=== PATIENT | female | born 1980 | race Caucasian/White ===

== ENCOUNTER 2020-11-11 16:42 | Outpatient (REF) | payer OTHER, SELFPAY | END 2020-11-11 16:43 | disposition home or self-care (01) | LOC: HO.LAB 16:42 | PROVIDERS: PCP Family Medicine; Visit Provider Internal Medicine | DX: Z20.828 Contact with and (suspected) exposure to other viral communicable diseases (principal) | CPT/HCPCS: C9803; U0003 ==

== ENCOUNTER 2021-03-05 08:11 | Outpatient (REF) | payer OTHER, SELFPAY ==
--- NOTE | ~2021-03-05 | XR_ITS ---
EXAMINATION: XR KNEE, RIGHT CLINICAL INFORMATION: Knee pain COMPARISON: None TECHNIQUE: Bilateral frontal, right lateral patella sunrise view of the right knee. FINDINGS: Bones and soft tissues are normal. No fracture, there is a small knee joint effusion. Alignment is anatomic. Joint spaces are well maintained. No abnormal soft tissue calcification. XR/XR knee RT 3V IMPRESSION: There is a small knee joint effusion. No fracture.
== END 2021-03-05 08:12 | disposition home or self-care (01) ==
LOC: HO.HOSX 08:11
PROVIDERS: Visit Provider Physician Assistant
DX: M17.11 Unilateral primary osteoarthritis, right knee (principal)
CPT/HCPCS: 20605; 20610; 73562; 99202; J1040

== ENCOUNTER 2021-09-02 09:10 | Outpatient (REF) | payer OTHER, SELFPAY ==
[2021-09-02 11:31] LABS: Appearance Urine CLEAR; Color Urine YELLOW; Glucose Urine UA NEG (NEG); Leukocyte Esterase Urine NEG (NEG); Nitrite Urine NEG (NEG); PH 5.5 (5.0-8.0); Specific Gravity - Urine 1.025 (1.005-1.025); Urine Blood NEG (NEG); Urine Ketones NEG (NEG); Urine Protein NEG (NEG-TRACE)
[2021-09-02 12:06] LABS: Alanine Aminotransferase 16 U/L (0-31); Albumin Level 4.4 g/dL (3.5-5.0); Alkaline Phosphatase 55 U/L (39-117); Anion Gap 13 (12-20); Aspartate Amino Transferase 21 U/L (5-31); Bilirubin Total 1.2 mg/dL (0.0-1.0); Blood Urea Nitrogen 14 mg/dL (9-16); Calcium 9.5 mg/dL (8.4-10.2); Carbon Dioxide 25 mmol/L (22-29); Chloride 107 mmol/L (96-108); Cholesterol 162 mg/dL; Estimated Glomerular Filt Rate > 60; Glucose Fasting 87 mg/dL (60-99); HDL Cholesterol 68 mg/dL; LDL Cholesterol Calculated 85 mg/dl; Potassium 4.5 mmol/L (3.3-5.1); Sodium 140 mmol/L (135-145); Total Protein 6.5 g/dL (6.5-8.0); Triglycerides 46 mg/dL
[2021-09-02 12:09] LABS: TSH reflex Free T4 1.52 uIU/mL (0.32-4.0)
[2021-09-05 11:32] LABS: TS Negative Control Passed; TS Panel A 0; TS Panel B 0; TS Positive Control Passed; TSpotTB Negative (SeeBelow)
== END 2021-09-02 09:11 | disposition home or self-care (01) ==
LOC: HO.WFDLDS 09:10
PROVIDERS: Visit Provider Family Medicine
DX: Z00.00 Encounter for general adult medical examination without abnormal findings (principal); Z11.1 Encounter for screening for respiratory tuberculosis
CPT/HCPCS: 36415; 80053; 80061; 81003; 84443; 86481

== ENCOUNTER 2022-02-25 08:01 | Outpatient (REF) | payer OTHER, SELFPAY ==
--- NOTE | ~2022-02-25 | XR_ITS ---
EXAMINATION: XR [id number]-[id number]-4 VIEW XR KNEE-LEFT-2 VIEWS CLINICAL INFORMATION: Pain unspecified knee. COMPARISON: Radiographs of the right knee and frontal view of both knees done on 03/05/2021. TECHNIQUE: Frontal views of both knees and 2 views of the left knee were obtained. FINDINGS: Frontal view of both knees show symmetric alignment with mild decreased joint space at medial compartments (left greater than right), consistent with mild osteoarthrosis. The lateral and the patellofemoral views of the left knee shows mild osteoarthrosis of the patellofemoral joint and no evidence of any joint effusion. No evidence of any fracture and/or dislocation. When compared to prior frontal views of both knees done on 03/05/2021, no significant interval changes present. XR/XR knee LT 2V IMPRESSION: 1. Mild osteoarthrosis of both medial compartments, similar to prior study dated 03/05/2021. 2. Mild patellofemoral osteoarthrosis of the left knee.
--- NOTE | ~2022-02-25 | XR_ITS ---
EXAMINATION: XR GFAJ-ODUHRNICE-2 VIEW XR KNEE-LEFT-2 VIEWS CLINICAL INFORMATION: Pain unspecified knee. COMPARISON: Radiographs of the right knee and frontal view of both knees done on 03/05/2021. TECHNIQUE: Frontal views of both knees and 2 views of the left knee were obtained. FINDINGS: Frontal view of both knees show symmetric alignment with mild decreased joint space at medial compartments (left greater than right), consistent with mild osteoarthrosis. The lateral and the patellofemoral views of the left knee shows mild osteoarthrosis of the patellofemoral joint and no evidence of any joint effusion. No evidence of any fracture and/or dislocation. When compared to prior frontal views of both knees done on 03/05/2021, no significant interval changes present. XR/XR knee standing BI IMPRESSION: 1. Mild osteoarthrosis of both medial compartments, similar to prior study dated 03/05/2021. 2. Mild patellofemoral osteoarthrosis of the left knee.
== END 2022-02-25 08:02 | disposition home or self-care (01) ==
LOC: HO.HOSX 08:01
PROVIDERS: Visit Provider Physician Assistant
DX: M17.12 Unilateral primary osteoarthritis, left knee (principal)
CPT/HCPCS: 20610; 73560; 73565; 99212; J1040

== ENCOUNTER 2022-06-17 08:41 | Outpatient (REF) | payer OTHER, SELFPAY ==
[2022-06-17 11:53] LABS: Alanine Aminotransferase 17 U/L (0-31); Albumin Level 4.5 g/dL (3.5-5.0); Alkaline Phosphatase 53 U/L (39-117); Anion Gap 12 (12-20); Aspartate Amino Transferase 28 U/L (5-31); Bilirubin Total 1.5 mg/dL (0.0-1.0); Blood Urea Nitrogen 15 mg/dL (9-16); Calcium 8.9 mg/dL (8.4-10.2); Carbon Dioxide 26 mmol/L (22-29); Chloride 105 mmol/L (96-108); Cholesterol 163 mg/dL; Estimated Glomerular Filt Rate > 60; Glucose Fasting 96 mg/dL (60-99); HDL Cholesterol 75 mg/dL; LDL Cholesterol Calculated 82 mg/dl; Sodium 139 mmol/L (135-145); Total Protein 6.6 g/dL (6.5-8.0); Triglycerides 32 mg/dL
[2022-06-17 12:09] LABS: TSH reflex Free T4 1.06 uIU/mL (0.32-4.0)
[2022-06-23 12:57] LABS: TS Panel A 0; TS Panel B 1; TSpotTB Negative (Negative)
[2022-06-27 14:22] LABS: TS Negative Control Passed; TS Positive Control Passed
== END 2022-06-17 08:42 | disposition home or self-care (01) ==
LOC: HO.WFDLDS 08:41
PROVIDERS: Visit Provider Family Medicine
DX: Z00.00 Encounter for general adult medical examination without abnormal findings (principal); Z11.1 Encounter for screening for respiratory tuberculosis
CPT/HCPCS: 36415; 80053; 80061; 84443; 86481

== ENCOUNTER → 2023-01-03 12:35 | Outpatient (BNVA) | payer OTHER, SELFPAY | PROVIDERS: PCP Family Medicine; Visit Provider Physician Assistant | DX: M17.12 Unilateral primary osteoarthritis, left knee (principal) | CPT/HCPCS: 20610; 99212; J1040 ==

== ENCOUNTER 2023-06-06 08:26 | Outpatient (REF) | payer OTHER, SELFPAY ==
[2023-06-06 11:34] LABS: MANUAL DIFF FLAG NO
[2023-06-06 11:46] LABS: Appearance Urine Clear; Color Urine Yellow; Glucose Urine UA Negative (Negative); Leukocyte Esterase Urine Moderate (2+) (Negative); Nitrite Urine Negative (Negative); Specific Gravity - Urine 1.015 (1.005-1.025); UMIC TRIGGER UA YES; Urine Blood Negative (Negative); Urine Ketones Negative (Negative); Urine Protein Negative (Neg-Trace)
[2023-06-06 11:48] LABS: Bacteria Urine 1+ (None Seen); Hyaline Casts Urine 0-2 /LPF (0-2); RBC Urine 0-2 /HPF (0-2)
[2023-06-06 11:55] LABS: Basophils Percent Auto 0.7 % (0-2); Eosinophils Absolute Auto 0.1 X10*3/uL (0.0-0.4); Hematocrit 43.1 % (37.0-47.0); Hemoglobin 14.1 g/dl (12.0-16.0); Imm Gran Abs Auto 0.01 X10*3/uL (0.00-0.03); Imm Gran Pct Auto 0.2 % (0.0-0.4); Lymphocytes Absolute Auto 1.6 X10*3/uL (1.2-4.9); Lymphocytes Percent Auto 29.2 % (20-40); Mean Corpuscular HGB Conc 32.7 g/dl (31.0-35.0); Mean Corpuscular Hemoglobin 29.1 pg (27.0-33.0); Mean Corpuscular Volume 88.9 fL (80.0-98.0); Mean Platelet Volume 10.7 fL (9.4-12.3); Monocytes Absolute Auto 0.3 X10*3/uL (0.1-1.2); Monocytes Percent Auto 5.9 % (2-11); Neutrophils Absolute Auto 3.5 x10*3/uL (2.0-8.3); Platelet Count 233 X10*3/uL (160-400); Red Blood Count 4.85 X10*6/uL (4.20-5.50); Red Cell Distribution Width 13.1 % (11.0-16.0); White Blood Count 5.6 X10*3/uL (4.8-10.8)
[2023-06-06 12:32] LABS: Alanine Aminotransferase 18 U/L (0-31); Albumin Level 4.2 g/dL (3.5-5.0); Alkaline Phosphatase 56 U/L (39-117); Anion Gap 10 (12-20); Aspartate Amino Transferase 22 U/L (5-31); Bilirubin Total 0.7 mg/dL (0.0-1.0); Blood Urea Nitrogen 15 mg/dL (9-16); Calcium 9.3 mg/dL (8.4-10.2); Carbon Dioxide 26 mmol/L (22-29); Chloride 107 mmol/L (96-108); Cholesterol 173 mg/dL; Estimated Glomerular Filt Rate > 60; Glucose Fasting 92 mg/dL (60-99); HDL Cholesterol 71 mg/dL; LDL Cholesterol Calculated 91 mg/dl; Potassium 4.4 mmol/L (3.3-5.1); Sodium 139 mmol/L (135-145); TSH reflex Free T4 1.46 uIU/mL (0.32-4.0); Total Protein 6.6 g/dL (6.5-8.0); Triglycerides 57 mg/dL
[2023-06-08 17:08] LABS: TS Negative Control Passed; TS Panel A 0; TS Panel B 0; TS Positive Control Passed; TSpotTB Negative (Negative)
== END 2023-06-06 08:27 | disposition home or self-care (01) ==
LOC: HO.WFDLDS 08:26
PROVIDERS: Visit Provider Family Medicine
DX: Z00.00 Encounter for general adult medical examination without abnormal findings (principal); Z11.1 Encounter for screening for respiratory tuberculosis
CPT/HCPCS: 36415; 80053; 80061; 81001; 84443; 85025; 86481

== ENCOUNTER 2023-06-19 08:56 | Outpatient (AMB) | payer OTHER, SELFPAY ==
[2023-06-19 09:12] VITALS: BP 120/72; PULSE 78; RESP 12; TEMP 36.6; O2SAT 98
--- NOTE | 2023-06-19 09:12 | MHC.AMWC2YR ---
Intake Pediatric Intake Visit Reasons: PE Allergies No Known Allergies Allergy (Verified 06/17/22 08:42) PFSH Medical History Herniated disc Social History Housing: House Patient Tobacco Use Status: Never used Tobacco e-Cigarette/Vaping Use: Never Used Second Hand Smoke Exposure: No service: No Current occupational status: unemployed and student Current occupation: right handed/ Current occupational exposures/hazards: No Cognitive needs: No Hearing needs: No Vision needs: No Coding Diagnoses
--- NOTE | 2023-06-19 09:12 | MHC.PC.OV ---
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 Accompanied by: Self / Same As Patient Allergies No Known Allergies Allergy (Verified 06/19/23 09:14) Medication List - Last Reconciled 06/19/23 by Willy David MD albuterol sulfate 90 mcg/actuation 2 puffs inhalation Q4H PRN albuterol sulfate 90 mcg/actuation (ProAir HFA) 2 puffs PO Q4-6H PRN buprenorphine-naloxone 2-0.5 mg (Suboxone) 1 film buccal DAILY Tobacco use date assessed: 06/19/23 Dental Screening Dental Screen Date: 06/19/23 Did you have a dental visit in the last 12 months?: Yes Did you have a dental problem in the last 6 months where you did not have access to dental care?: No Was dental information given to patient?: Patient has dentist HPI PE HPI Details 42 y/o female presents for an extended exam with f/u labs and health maintenance. Labs were drawn 06/06/23. Reviewed labs with pt. Triglycerides 57. TC 173. LDL 91. HDL 71. She continues to go to orthopedics for injection therapy. She reports she continues to walk every day for exercise. She states she needs to find an Ob-Customer Sales Consultant for a pap smear. [facility] Medical History Herniated disc Surgical History No pertinent past surgical history Social History Housing: House Patient Tobacco Use Status: Never used Tobacco e-Cigarette/Vaping Use: Never Used Second Hand Smoke Exposure: No service: No Current occupational status: student Current occupation: right handed/ Current occupational exposures/hazards: No Cognitive needs: No Hearing needs: No Vision needs: No Questionnaire PHQ-9 Over the last 2 weeks, how often have you been bothered by any of the following problems? 1. Little interest or pleasure in doing things: not at all 2. Feeling down, depressed, or hopeless: not at all 3. Trouble falling or staying asleep, or sleeping too much: not at all 4. Feeling tired or having little energy: not at all 5. Poor appetite or overeating: not at all 6. Feeling bad about yourself - or that you are a failure or have let yourself or your family down: not at all 7. Trouble concentrating on things, such as reading the newspaper or watching television: not at all 8. Moving or speaking so slowly that other people could have noticed. Or the opposite - being so fidgety or restless that you have been moving around a lot more than usual: not at all 9. Thoughts that you would be better off or of hurting yourself in some way: not at all Total score: 0 Source: Developed by Drs. Augustine Ramirez, Bertha Carmichael, Dayton Sweeney and colleagues, with an educational taylor from [employer]. Thrive Questionnaire Date Thrive assessed: 06/19/23 I am a: Patient What is your living situation today?: I have a steady place to live Within the past 12 months, did the food you bought not last and you didn't have the money to get more?: Never true Within the past 12 months, did you worry whether your food would run out before you got money to buy more?: Never true Do you have trouble paying for medicines?: No Do you have trouble getting transportation to medical appointments?: No Do you have trouble paying your heating and electricity bill?: No Do you have trouble taking care of your child, family member or friend?: No Do you have trouble with day-to-day activities such as bathing, preparing meals, shopping, managing finances, etc.?: No Are you currently unemployed and looking for a job?: No Are you interested in more education?: No Please select the resources that you would like help with: None Currently or been in a relationship where the following occur: no concerns reported AUDIT C Alcohol Use Questionnaire (AUDIT-C) 1. How often do you have a drink containing alcohol?: Never 3. How often do you have six or more drinks on one occasion?: Never Total Score: 0 YVETTE-7 AMB Questionnaire YVETTE-7 Date YVETTE - 7 assessed: 06/19/23 Feeling nervous, anxious, or on edge: 0 = Not at all Not being able to stop or control worryin = Not at all Worrying too much about different things: 0 = Not at all Trouble relaxin = Not at all Being so restless that it is hard to sit still: 0 = Not at all Becoming easily annoyed or irritable: 0 = Not at all Feeling afraid as if something awful might happen: 0 = Not at all Total YVETTE-7 score (0-4 normal; 5-9 mild; 10-14 moderate; 15-21 severe): 0 Source: Developed by Drs. Augustine Ramirez, Bertha Carmichael, Dayton Sweeney and colleagues, with an educational taylor from [employer]. ACT Questionnaire In the past 4 weeks, how much of the time did your asthma keep you from getting as much done at work, school or at home?: None of the time During the past 4 weeks, how often have you had shortness of breath?: Not at all During the past 4 weeks, how often did your asthma symptoms wake you up at night or earlier than usual in the morning?: Not at all During the past 4 weeks, how often have you had to use your rescue inhaler or nebulizer medication?: Once a week or less How would you rate your asthma control during the past 4 weeks?: Completely controlled Score: 24 Review of Systems Const Denies chills, Denies fatigue, Denies fever(s), Denies headache(s) and Denies weakness Eyes Denies change in vision ENT Denies dizziness, Denies headache(s), Denies hearing loss, Denies nasal congestion, Denies sinus pain, Denies sinus pressure and Denies sore throat Card Denies chest pain, Denies lightheadedness, Denies dyspnea and Denies other (palpitations) Resp Denies cough, Denies dyspnea and Denies wheezing GI Denies abdominal pain, Denies melena, Denies hematochezia, Denies change in bowel habits, Denies dyspepsia and Denies nausea Denies hematuria and Denies dysuria Musc Denies abnormal gait, Denies myalgias, Denies arthralgias, Denies numbness and Denies tingling Skin/Breast Denies rash, Denies unusual bruising and Denies wounds Neuro Denies abnormal gait, Denies dizziness, Denies headache(s), Denies memory loss, Denies numbness, Denies Sensory deficit (Neuro), Denies tingling and Denies weakness Psych Denies anxiety, Denies depression and Denies memory loss Endo Denies cold intolerance, Denies fatigue, Denies heat intolerance, Denies polydipsia and Denies polyuria Deo/Lymph Denies easy bleeding and Denies easy bruising Aller/Immun Denies wheezing Physical exam (Primary Care) Vital Signs: Last Vital Signs Temp 97.9 F 06/19/23 09:12 Pulse 78 06/19/23 09:12 Resp 12 06/19/23 09:12 BP 120/72 06/19/23 09:12 Pulse Ox 98 06/19/23 09:12 Oxygen Delivery Method Room Air 06/19/23 09:12 BMI result Body Mass Index 30.0 Tobacco/Smoking Status: Tobacco use Status Tobacco use date assessed 06/19/23 06/19/23 09:19 Patient Tobacco Use Status Never used Tobacco 06/19/23 09:19 e-Cigarette/Vaping Use Never Used 06/19/23 09:19 PHQ-9: PHQ-9 Score PHQ-9: Total score 0 06/19/23 09:19 Thrive Assessment: Date of Thrive Assessment Date Thrive assessed 06/19/23 06/19/23 09:19 Currently or been in a relationship where the following occur: no concerns reported Const General: no acute distress, well developed, alert and awake Nutritional Appearance: well nourished Orientation/consciousness: patient oriented x3 HENMT Head: Yes normocephalic and Yes atraumatic Ears: hearing grossly normal bilaterally and TM's normal bilaterally General nose exam: Normal external nose present and Normal nares present Mouth: Normal oral and palatal mucosa present and moist mucous membranes Teeth and gingiva: dentition normal Throat: Yes posterior oropharynx normal Eyes General: appearance normal, both eyes and all related structures Pupils: Equal, round and reactive pupils present and Pupil accommodation reflex normal EOM: EOMs intact bilaterally Neck Neck: Yes normal visual inspection, Yes no lymphadenopathy and Yes trachea midline Thyroid: Thyroid normal Carotids: no bruits Lymphatic: no lymphadenopathy noted Chest Chest palpation & inspection: normal inspection of the chest Resp Effort & Inspection: normal respiratory effort Auscultation: clear to auscultation bilaterally Cardio Rate: regular rate Rhythm: regular rhythm Heart sounds: S1 normal heart sound present, S2 normal heart sound present, no gallops, no murmurs and no rubs Bruits: no abdominal aortic bruits and no carotid bruits GI Palpation (GI): No Abdominal aortic bruit present, Soft to palpation, nontender, No hepatosplenomegaly present and No Rebound tenderness present Auscultation: normal bowel sounds General: Yes no CVA tenderness Back/Spine/Pelvis Back: no CVA tenderness Cervical Spine: cervical ROM normal and No Cervical spine tenderness Thoracic/Lumbar Spine: thoraco-lumbar ROM normal, No pain with thoraco-lumbar ROM, No thoracic spinal tenderness and No lumbar spinal tenderness Skin Lesions: no lesions Rashes: no rashes Trauma: no lacerations or abrasions Wounds: no wounds Nails: normal Neuro General: patient oriented x3 Cranial nerves: Yes Equal, round and reactive pupils present Cognition (Neuro): normal cognition Gait exam (Neuro): Normal gait present Motor exam (neuro): 5/5 motor strength present throughout Sensory Exam: No Sensory deficit (Neuro) Deep tendon reflexes (DTR's): Right patellar reflex intensity grade: 2+ and Left patellar reflex intensity grade: 2+ Extrem General: Yes normal to inspection and No edema Psych Appearance: grossly normal Affect: normal affect Attitude: cooperative Thought process: Normal thought process present Assessment and Plan Assessment & Plan (1) Screening for cervical cancer: Code(s): Z12.4 - Encounter for screening for malignant neoplasm of cervix Plan: Referred to OBGYN for cervical cancer screening (2) Screening for breast cancer: Code(s): Z12.39 - Encounter for other screening for malignant neoplasm of breast Plan: Has not had mammograms before. Due for 1st screening mammogram-ordered (3) Osteoarthritis of right knee: Code(s): M17.11 - Unilateral primary osteoarthritis, right knee Plan: Stable Receives injections from Ortho Follow-up as recommended (4) Adult general medical exam: Code(s): Z00.00 - Encounter for general adult medical examination without abnormal findings Plan: Exam today within normal limits Orders: Orders Comprehensive [place]. Panel Fast 11 Months Z00.00 - Encounter for general adult medical examination without abnormal findings Lipid Panel 11 Months Z00.00 - Encounter for general adult medical examination without abnormal findings TSH reflex Free T4 11 Months Z00.00 - Encounter for general adult medical examination without abnormal findings Microalbumin, Random (w Creat) 11 Months I10 - Essential (primary) hypertension Complete Blood Count Auto Diff 11 Months Z00.00 - Encounter for general adult medical examination without abnormal findings MM tomosynthesis screening BI Today Z12.31 - Encounter for screening mammogram for malignant neoplasm of breast UA and rflx microscopic 11 Months Z00.00 - Encounter for general adult medical examination without abnormal findings Referrals POWER SYSTEM ELECTRICAL ENGINEER Referral Z12.4 - Encounter for screening for malignant neoplasm of cervix Coding Level of Care Code Est Pt Level 4 (94347) Diagnoses Screening for cervical cancer Z12.4 Screening for breast cancer Z12.39 Osteoarthritis of right knee M17.11 Adult general medical exam Z00.00
== END 2023-06-19 09:33 | disposition home or self-care (01) ==
PROVIDERS: PCP Family Medicine; Visit Provider Family Medicine
DX: Z12.4 Encounter for screening for malignant neoplasm of cervix (principal); Z12.39 Encounter for other screening for malignant neoplasm of breast; M17.11 Unilateral primary osteoarthritis, right knee; Z00.00 Encounter for general adult medical examination without abnormal findings
CPT/HCPCS: 99214

== ENCOUNTER 2023-10-30 14:18 | Outpatient (REF) | payer OTHER, SELFPAY ==
[2023-10-31 05:05] LABS: CT PCR NOT DETECTED (Not Detect.); NG PCR NOT DETECTED (Not Detect.)
[2023-10-31 13:00] LABS: BV Int Neg Control Negative (Negative); BV Int Pos Control Positive (Positive)
[2023-11-03 02:04] LABS: HPV mRNA E6/E7 rflx Not Detected (Not Detected)
== END 2023-10-30 14:19 | disposition home or self-care (01) ==
LOC: HO.LNP 14:18
PROVIDERS: PCP Family Medicine; Visit Provider Advanced Practice Midwife
DX: Z01.419 Encounter for gynecological examination (general) (routine) without abnormal findings (principal); Z11.51 Encounter for screening for human papillomavirus (HPV); Z20.2 Contact with and (suspected) exposure to infections with a predominantly sexual mode of transmission
CPT/HCPCS: 0353U; 87480; 87510; 87624; 87660; 88142; 99386

== ENCOUNTER 2023-10-30 14:18 | Outpatient (AMB) | payer OTHER, SELFPAY ==
--- NOTE | 2023-10-30 14:25 | A.OFFVIS_ITS ---
Intake Vital Signs 10/30/23 14:26 Height 5 ft 5 in Weight 204 lb BMI 33.9 BP 110/76 Intake Visit Reasons: New patient Annual Technical Sales Support Specialist Required: No Information Interpreted: non-clinical & clinical Fire Suppression Captain: Fire Suppression Captain Present (Niko) Allergies No Known Allergies Allergy (Verified 10/30/23 14:30) Medication List - Last Reconciled 10/30/23 by Jenny Cummins CNM albuterol sulfate 90 mcg/actuation 2 puffs inhalation Q4H PRN albuterol sulfate 90 mcg/actuation (ProAir HFA) 2 puffs PO Q4-6H PRN buprenorphine-naloxone 2-0.5 mg (Suboxone) 1 film buccal DAILY Is last menstrual period known: Yes Last menstrual period: 10/20/23 Post menopausal: No HPI New patient Annual HPI Details 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 Patiño she had a LEEP done about 7 years ago. She is sexually active with her partner of 20 years she has never gotten she is unsure how she would feel if she did she know she is getting a little bit older but she has not had a child. She is on the fence about whether not she wants to contraceptive she never has and has not needed to she is aware of symptoms of ovulation. Her periods come very regular once a month and they last about 4 days and only the 1st day is really crampy and heavy and they are better after that. She works as a patient childcare attendant on the cardiac unit at [employer] and likes her job and the team she works with she is on 1st shift. 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 and is just finishing up the 1st semester of clinical as well. 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 She had an issue with back pain and slipped disc and had an issue with pain pills years ago and is weaning down on Suboxone now and is cutting the smallest dose films in half and weaning off and is almost there. [facility] Medical History (Updated 10/30/23 @ 15:23 by Jenny Cummins CNM) Herniated disc Surgical History (Updated 10/30/23 @ 14:34 by STEVEN Tenorio) History of loop electrical excision procedure (LEEP) History of surgical removal of ganglion cyst No pertinent past surgical history Family History (Updated 10/30/23 @ 14:32 by STEVEN Tenorio) Maternal Aunt Breast cancer Social History Housing: House Patient Tobacco Use Status: Never used Tobacco e-Cigarette/Vaping Use: Never Used Second Hand Smoke Exposure: No service: No Current occupational status: student Current occupation: right handed/ Current occupational exposures/hazards: No Cognitive needs: No Hearing needs: No Vision needs: No Female Reproductive History Menstrual Age of Menarche: 16 Duration of menses: 3-5 days Date of last menstrual period: 10/20/23 control method: none Total pregnancies: 2 Ab induced: 2 History of abnormal pap smear: Yes Physical Exam Vital Signs: Last Vital Signs BP 110/76 10/30/23 14:26 BMI result Body Mass Index 33.9 Const General: healthy appearing, comfortable, no acute distress, well developed and alert Nutritional Appearance: average body habitus Orientation/consciousness: patient oriented x3 Limitations: no limitations HEENT Head: Yes normocephalic Neck Neck: Yes normal visual inspection Thyroid: Thyroid normal Chest Chest palpation & inspection: normal inspection of the chest Breast/axilla inspection: normal inspection of the breasts and normal inspection of the axillae Breast/axilla palpation: normal palpation of the breasts and normal palpation of the axillae Resp Effort & Inspection: normal respiratory effort GI Inspection: Yes normal to inspection, No Abdominal wall edema and No distended Palpation (GI): Soft to palpation and nontender Other: Vagina pink and moist cervix shows evidence of a LEEP and bled with touch of speculum. Discharge is otherwise completely normal. Pap smear done as well as cultures for gonorrhea chlamydia trichomoniasis Gardnerella and Cheri. General: Yes bladder normal to palpation External Female Exam: normal external appearance and normal appearance of the urethra Speculum Exam - Vagina: normal appearance of the vagina, normal palpation and normal vaginal discharge Speculum Exam - Cervix: normal appearance of the cervix, normal palpation and nontender Bimanual exam- vagina & uterus: normal bimanual exam, normal palpation, uterine size normal, bladder normal to palpation, consistency normal, normal palpation, uterine mobility normal, uterine shape normal, No Cervical tenderness present, non-tender and no cervical motion tenderness Bimanual Exam- Adnexa, other: normal adnexae, no masses, normal and No adnexal tenderness Neuro General: patient oriented x3 Assessment & Plan Assessment & Plan (1) Screening for breast cancer: Comment: Order for mammogram is in the system she will call to schedule.. Code(s): Z12.39 - Encounter for other screening for malignant neoplasm of breast (2) Screening for cervical cancer: Comment: History of LEEP about 7 years ago Pap smear done 10/30/2023 cervix friable at LEEP site. Code(s): Z12.4 - Encounter for screening for malignant neoplasm of cervix (3) Well woman exam with routine gynecological exam: Code(s): Z01.419 - Encounter for gynecological examination (general) (routine) without abnormal findings (4) control counseling: Code(s): Z30.09 - Encounter for other general counseling and advice on contraception Plan -----Discussed in this visit the following: healthy balanced diet, regular and consistent exercise, getting recommended health screens, doing the best she can for her particular health concerns, kegel exercises, pap smear screening and followup recommendations, mammography screening and SBE, normal changes in cycles in her life stage--- .-I reviewed with the patient, all of the currently common used methods of control that are available. We reviewed how they work in the body, how they are taken, common side effects, uncommon side effects, precautions, and contraindications. -Discussed also factors that influence their effectiveness and use, and womens satisfaction with the method. -Discussed how each are used, and drawbacks of each method as well. -Methods covered included: condoms, control pills, control patches, control rings, Depo-Provera, Nexplanon, Mirena and and ParaGard IUDs. All of the above methods were covered in great detail including their side effect profiles. Discussed the risks of at this age though also discussed that if she decided that she wished to pursue it can become more challenging to achieve that this age but is not impossible, also come with increased risks of hypertension diabetes and increased risk of anomalies. and discussed that if she wished to seek reproductive assistance she be whyte to keep track of her periods in detail as well as timing of ovulation and proof of 0 P Sharifa's for at least 6 months before seeking care [facility] reproductive Medicine. Her primary ordered her mammogram last May and ordered fasting blood work and her CBC was normal as well as TSH and fasting glucose. She will check at the front attendant about how to schedule her mammogram which was ordered by her PCC and she is on the portal and can get results that way. Normal findings of Gardnerella and Cheri discussed especially in the face of a normal appearing discharge. She will be getting a month break from school during the holidays and she is hoping to get into a better routine cause she has gained about 20 lb in last year with school and working. Orders: Orders Bacterial Vaginosis Panel Today Z20.2 - Contact with and (suspected) exposure to infections with a predominantly sexual mode of transmission CT NG by PCR Today Z20.2 - Contact with and (suspected) exposure to infections with a predominantly sexual mode of transmission Pap Smear Today Z12.4 - Encounter for screening for malignant neoplasm of cervix Coding Level of Care Code New Pt Prev Care 40-64y(46630) Diagnoses Screening for breast cancer Z12.39 Screening for cervical cancer Z12.4 Well woman exam with routine gynecological exam Z01.419 control counseling Z30.09
[2023-10-30 14:26] VITALS: BP 110/76; BMI 33.9
== END 2023-10-30 15:26 | disposition home or self-care (01) ==
PROVIDERS: PCP Family Medicine; Visit Provider Advanced Practice Midwife
DX: Z01.419 Encounter for gynecological examination (general) (routine) without abnormal findings (principal); Z12.39 Encounter for other screening for malignant neoplasm of breast; Z12.4 Encounter for screening for malignant neoplasm of cervix; Z30.09 Encounter for other general counseling and advice on contraception
CPT/HCPCS: 99386

== ENCOUNTER 2023-12-19 12:57 | Outpatient (AMB) | payer OTHER, SELFPAY ==
--- NOTE | 2023-12-19 12:59 | A.OFFPC_ITS ---
Vital Signs 12/19/23 13:02 Height 5 ft 5 in Weight 205 lb 3 oz BMI 34.1 BP 112/74 Blood Pressure Location Lt brachial Position Sitting Pulse 72 Pulse Source Pulse Oximeter Pulse Oximetry (%) 99 Oxygen Delivery Method Room Air Intake Visit Reasons: problems with sleeping Intake Note: Patient is here today for problems with sleeping after stopping suboxone ongoing for a month Ship Boss Required: No Sales Product Manager: Not Required per policy Accompanied by: Self / Same As Patient Allergies No Known Allergies Allergy (Verified 12/19/23 13:23) Medication List - Last Reconciled 12/19/23 by MARGARITO Schmitz-SORAYA albuterol sulfate 90 mcg/actuation (ProAir HFA) 2 puffs PO Q4-6H PRN Tobacco use date assessed: 12/19/23 Dental Screening Dental Screen Date: 12/19/23 Did you have a dental visit in the last 12 months?: Yes Did you have a dental problem in the last 6 months where you did not have access to dental care?: No Was dental information given to patient?: Patient has dentist HPI HPI Comments History of Present Illness Details Here today with complaints of insomnia. Reports this started after she tapered off of Suboxone. Reports was managed by clinic. 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 Has tried melatonin 30 mg and NyQuil and other okhl-kod-qwxuqnu products without relief Since she is only getting about 2 and half to 3 hours of sleep per night. She is able to fall asleep but not stay asleep. Feels exhausted upon waking. Denies any sleep apnea symptoms or any treatment for sleep apnea in the past. Sleep hygiene reviewed [facility] Medical History (Updated 12/19/23 @ 14:23 by WHITNEY Schmitz) Herniated disc Surgical History History of loop electrical excision procedure (LEEP) History of surgical removal of ganglion cyst No pertinent past surgical history Family History Maternal Aunt Breast cancer Social History (Updated 12/19/23 @ 13:06 by STEVEN Aguirre) Housing: House Alcohol intake: never Patient Tobacco Use Status: Former Tobacco user e-Cigarette/Vaping Use: Never Used Second Hand Smoke Exposure: Yes service: No Current occupational status: student Current occupation: right handed/ Current occupational exposures/hazards: No Cognitive needs: No Hearing needs: No Vision needs: No Female Reproductive History Menstrual Age of Menarche: 16 Questionnaire PHQ-9 Over the last 2 weeks, how often have you been bothered by any of the following problems? 1. Little interest or pleasure in doing things: not at all 2. Feeling down, depressed, or hopeless: not at all 3. Trouble falling or staying asleep, or sleeping too much: not at all 4. Feeling tired or having little energy: not at all 5. Poor appetite or overeating: not at all 6. Feeling bad about yourself - or that you are a failure or have let yourself or your family down: not at all 7. Trouble concentrating on things, such as reading the newspaper or watching television: not at all 8. Moving or speaking so slowly that other people could have noticed. Or the opposite - being so fidgety or restless that you have been moving around a lot more than usual: not at all 9. Thoughts that you would be better off or of hurting yourself in some way: not at all Total score: 0 Depression Screening Interpretation: Negative Depression Screening Done: Yes Source: Developed by Drs. Augustine Ramirez, Bertha Carmichael, Dayton Sweeney and colleagues, with an educational taylor from [employer]. Thrive Questionnaire Date Thrive assessed: 12/19/23 I am a: Patient What is your living situation today?: I have a steady place to live Within the past 12 months, did the food you bought not last and you didn't have the money to get more?: Never true Within the past 12 months, did you worry whether your food would run out before you got money to buy more?: Never true Do you have trouble paying for medicines?: No Do you have trouble getting transportation to medical appointments?: No Do you have trouble paying your heating and electricity bill?: No Do you have trouble taking care of your child, family member or friend?: No Do you have trouble with day-to-day activities such as bathing, preparing meals, shopping, managing finances, etc.?: No Are you currently unemployed and looking for a job?: No Are you interested in more education?: No Currently or been in a relationship where the following occur: no concerns reported THRIVE Score: 0 AUDIT C Alcohol Use Questionnaire (AUDIT-C) 1. How often do you have a drink containing alcohol?: Never Total Score: 0 YVETTE-7 AMB Questionnaire YVETTE-7 Date YVETTE - 7 assessed: 12/19/23 Feeling nervous, anxious, or on edge: 3 = Nearly every day Not being able to stop or control worryin = Nearly every day Worrying too much about different things: 3 = Nearly every day Trouble relaxin = Nearly every day Being so restless that it is hard to sit still: 3 = Nearly every day Becoming easily annoyed or irritable: 3 = Nearly every day Feeling afraid as if something awful might happen: 3 = Nearly every day Total YVETTE-7 score (0-4 normal; 5-9 mild; 10-14 moderate; 15-21 severe): 21 Source: Developed by Drs. Augustine Ramirez, Bertha Carmichael, Dayton Sweeney and colleagues, with an educational taylor from [employer]. Review of Systems Const All systems reviewed & are unremarkable except as noted in HPI and below Physical exam (Primary Care) Vital Signs: Last Vital Signs Pulse 72 12/19/23 13:02 BP 112/74 12/19/23 13:02 Pulse Ox 99 12/19/23 13:02 Oxygen Delivery Method Room Air 12/19/23 13:02 BMI result Body Mass Index 34.1 Tobacco/Smoking Status: Tobacco use Status Tobacco use date assessed 12/19/23 12/19/23 13:08 Patient Tobacco Use Status Former Tobacco user 12/19/23 13:08 e-Cigarette/Vaping Use Never Used 12/19/23 13:08 PHQ-9: PHQ-9 Score PHQ-9: Total score 0 12/19/23 13:25 Depression Screening Interpretation: Negative Thrive Assessment: Date of Thrive Assessment Date Thrive assessed 12/19/23 12/19/23 13:08 Currently or been in a relationship where the following occur: no concerns reported Const Other: Awake alert oriented Speaking in full sentences Engaging & inappropriate Assessment and Plan Assessment & Plan (1) Insomnia disorder: Code(s): G47.00 - Insomnia, unspecified Qualifiers: Insomnia type: adjustment Qualified Code(s): F51.02 - Adjustment insomnia Plan: Will trial her on mirtazapine 7.5mg. Advised that she can take it daily or as needed. However I do recommend that she take it daily for 2 weeks to help reset her sleep-wake cycle. I have asked that she follow up in the office in about 4 weeks' time or by the phone so we can review if this is or is not working for her. Titrate dose to effect. Sleep hygiene reviewed This note is constructed using voice recognition software. While every effort has been made to ensure accuracy in special events assistant, still errors may have been included Sometimes, these errors may affect the content or meaning of the given sentence . Medications: New mirtazapine 7.5 mg PO BEDTIME 30 tabs 1RF 30 days NS Coding Level of Care Code Est Pt Level 3 (26477) Diagnoses Adjustment insomnia F51.02 Insomnia type: adjustment
[2023-12-19 13:02] VITALS: BP 112/74; PULSE 72; O2SAT 99; BMI 34.1
== END 2023-12-19 13:30 | disposition home or self-care (01) ==
PROVIDERS: PCP Family Medicine; Visit Provider Nurse Practitioner Family
DX: F51.02 Adjustment insomnia (principal)
CPT/HCPCS: 99213

== ENCOUNTER 2024-01-16 13:34 | Outpatient (AMB) | payer OTHER, SELFPAY ==
--- NOTE | 2024-01-16 13:33 | A.OFFPC_ITS ---
Intake Visit Reasons: 4 Week Follow up Intake Note: Telehealth call for follow up. Allergies No Known Allergies Allergy (Verified 01/16/24 13:35) Tobacco use date assessed: 12/19/23 HPI HPI Comments History of Present Illness Details Given the COVID-19 pandemic, the patient was offered and has consented to a telemedicine visit with Litzy Glynn NP on 12/2723 at 1345 in lieu of a traditional in-office visit. Patient understands the risks, alternatives and benefits of a telemedicine visit. The patient has been informed of the limitations of a telemedicine visit, including the quality of self-reported information (e.g. vital signs and symptoms) as well as the inability to perform a hands-on physical exam by a healthcare provider. Patient understands that a traditional in-office visit may be required based on the findings of today's telemedicine visit. Patient also understands that their insurance will be billed for services rendered and that a copayment may be required. Four-week follow-up for insomnia. Since last visit she was started on mirtazapine 7.5 mg. She has been taking nightly which did help her sleep however she noticed an uptake in her appetite. Reports that she was ?ravenous?. She therefore stopped. Since last visit her anxiety and stressors have decreased. She is started to use the herbal supplement ashwagandha. Has been using nightly with great effects. She would like to continue to take this as it is working well but just worries about any side effects or things to look for. [facility] Medical History (Updated 01/16/24 @ 15:50 by Litzy Pitts, [facility]) Herniated disc Surgical History History of loop electrical excision procedure (LEEP) History of surgical removal of ganglion cyst No pertinent past surgical history Family History Maternal Aunt Breast cancer Social History (Updated 12/19/23 @ 13:06 by STEVEN Aguirre) Housing: House Alcohol intake: never Patient Tobacco Use Status: Former Tobacco user e-Cigarette/Vaping Use: Never Used Second Hand Smoke Exposure: Yes service: No Current occupational status: student Current occupation: right handed/ Current occupational exposures/hazards: No Cognitive needs: No Hearing needs: No Vision needs: No Female Reproductive History Menstrual Age of Menarche: 16 Questionnaire Thrive Questionnaire Date Thrive assessed: 12/19/23 YVETTE-7 AMB Questionnaire YVETTE-7 Date YVETTE - 7 assessed: 12/19/23 Source: Developed by Drs. Augustine Ramirez, Bertha Carmichael, Dayton Sweeney and colleagues, with an educational taylor from [employer]. Review of Systems Const All systems reviewed & are unremarkable except as noted in HPI and below Physical exam (Primary Care) Tobacco/Smoking Status: Tobacco use Status Tobacco use date assessed 12/19/23 01/16/24 13:34 Patient Tobacco Use Status Former Tobacco user 01/16/24 13:34 e-Cigarette/Vaping Use Never Used 01/16/24 13:34 Thrive Assessment: Date of Thrive Assessment Date Thrive assessed 12/19/23 01/16/24 13:34 Telehealth Telehealth Location of provider rendering services: practice address Location of patient: address on file Patient Identification confirmed using: Name, : Yes Telehealth method: voice only Patient verbally consented to treatment: Yes Patient verbally consented to billing insurance company: Yes Patient informed of any privacy concerns related to visit: Yes Minutes spent on Phone/Video with Pt.: 11 Assessment and Plan Assessment & Plan (1) Insomnia disorder: Comment: While the mirtazapine worked well it did cause a side effect of increased appetite which is known to do. Therefore the decision was made to stop this. She has started to use a herbal supplement ashwagandha. Advised it is okay to do this however educated about the risks of additives that are not monitored by the FDA as well as the risks to her liver. Decision was made to look at her liver enzymes in about 6 weeks and follow up by phone to see how this medication is working for her as well as to review the labs. Code(s): G47.00 - Insomnia, unspecified Qualifiers: Insomnia type: adjustment Qualified Code(s): F51.02 - Adjustment insomnia (2) Adverse drug interaction with herbal supplement: Code(s): T50.905A - Adverse effect of unspecified drugs, medicaments and biological substances, initial encounter Orders: Orders Comprehensive Met. Panel 02/13/24 T50.905A - Adverse effect of unspecified drugs, medicaments and biological substances, initial encounter Medications: Discontinued mirtazapine Discontinued Reason: Patient no longer taking 7.5 mg PO BEDTIME 30 days 30 tabs 1RF NS Coding Level of Care Code Tele Est Pt Level 2 (63748) Diagnoses Adjustment insomnia F51.02 Insomnia type: adjustment Adverse drug interaction with herbal supplement T50.903I
== END 2024-01-16 14:05 | disposition home or self-care (01) ==
PROVIDERS: PCP Family Medicine; Visit Provider Nurse Practitioner Family
DX: F51.02 Adjustment insomnia (principal); T50.905A Adverse effect of unspecified drugs, medicaments and biological substances, initial encounter
CPT/HCPCS: 99212

== ENCOUNTER 2024-03-05 08:02 | Outpatient (AMB) | payer OTHER, SELFPAY ==
[2024-03-05 08:04] VITALS: BMI 34.1
--- NOTE | 2024-03-05 08:04 | MHC.OFFVIS ---
Intake Vital Signs 03/05/24 08:04 Height 5 ft 5 in Weight 205 lb BMI 34.1 Intake Visit Reasons: OV - right knee OA, last inj 01/03/23 Intake Note: Tsering is a 43 year old female who presents today for Right knee pain. Patient reports she would like an injection in her right. Allergies No Known Allergies Allergy (Verified 03/05/24 08:14) HPI OV - right knee OA, last inj 01/03/23 HPI Details 43-year-old female who presents in the office today for a follow up of left knee osteoarthritis. I last saw the patient in the office on 01/03/2023 when she received a cortisone injection in the left knee. While in the office today the patient reports pain in the right knee. [facility] Medical History Herniated disc Surgical History History of loop electrical excision procedure (LEEP) History of surgical removal of ganglion cyst No pertinent past surgical history Family History Maternal Aunt Breast cancer Social History Housing: House Alcohol intake: never Patient Tobacco Use Status: Former Tobacco user e-Cigarette/Vaping Use: Never Used Second Hand Smoke Exposure: Yes service: No Current occupational status: student Current occupation: right handed/ Current occupational exposures/hazards: No Cognitive needs: No Hearing needs: No Vision needs: No Female Reproductive History Menstrual Age of Menarche: 16 Review of Systems Const All systems reviewed & are unremarkable except as noted in HPI and below Physical Exam Vital Signs: BMI result Body Mass Index 34.1 Const General: cooperative, healthy appearing and no acute distress Orientation/consciousness: patient oriented x3 Resp Effort & Inspection: normal respiratory effort and able to speak in complete sentences Cardio Rate: regular rate Peripheral pulses: Peripheral pulses 2+ throughout GI Palpation (GI): Soft to palpation Skin Lesions: no lesions Rashes: no rashes Neuro General: patient oriented x3 Extrem Other: right knee normal to inspection. No ecchymosis, erythema, or joint effusion. No tenderness to palpation of the medial joint lines. Mild tenderness lateral joint line. Negative Lexi's. Negative anterior drawer. NVI. Psych Mental Status: mental status grossly normal Office Procedures Joint Injection/Drain Joint Injection/Drain Primary Site: right knee Prep: site was prepped using aseptic technique, ethochloride spray was applied and injection warnings given Injected: 80 mg of, DepoMedrol, with 8 mL of (2% plain lido ) and in the joint Approach Used: anterolateral Procedure: The patient tolerated the procedure well, but had some pain with the injection and there was some relief with the local anesthesia Coding - Large joint Procedure code (CPT) selection complete Assessment & Plan Assessment & Plan (1) Osteoarthritis of left knee: Code(s): M17.12 - Unilateral primary osteoarthritis, left knee Plan The patient was offered a cortisone injection in the right knee with 80 mg of depo. The patient was explained the risk, benefits, and alternatives to receiving this injection. After receiving consent for the injection, the patient had the procedure done while in office today. The patient tolerated the procedure well with no complications. Follow up will be PRN, or sooner if needed. Patient Instructions: Scribed by Katharine Schwarz director of medical education, for Riddhi Josue PA-C on 03/05/2024 at 8:08 am, EST. Coding Level of Care Code Est Pt Level 3 (91927) Diagnoses Osteoarthritis of left knee M17.12 CPT Codes Coding - Large joint: 19949 - Large joint ([id number])
== END 2024-03-05 08:40 | disposition home or self-care (01) ==
PROVIDERS: PCP Family Medicine; Visit Provider Physician Assistant
DX: M17.11 Unilateral primary osteoarthritis, right knee (principal)
CPT/HCPCS: 20610; 99213

== ENCOUNTER → 2024-03-05 08:02 | Outpatient (BNVA) | payer OTHER, SELFPAY | PROVIDERS: PCP Family Medicine; Visit Provider Physician Assistant | DX: M17.12 Unilateral primary osteoarthritis, left knee (principal) | CPT/HCPCS: 20610; 99212; J1010; J1040 ==

== ENCOUNTER 2024-12-10 12:16 | Outpatient (REF) | payer OTHER, SELFPAY ==
--- NOTE | ~2024-12-10 | XR_ITS ---
EXAMINATION: XR KNEE 3 VIEWS LEFT HISTORY: M25.569 - Pain in unspecified knee COMPARISON: Comparison is made with the prior examination dated 02/25/2022. FINDINGS: Three views of the left knee and a standing AP view of the right knee are submitted. Osseous mineralization is normal. There is mild osteoarthritis of the medial and patellofemoral compartments with joint space narrowing. The joint spaces are preserved. The soft tissues are unremarkable. XR/XR knee LT 3V IMPRESSION: Mild osteoarthritis of the medial and patellofemoral compartments. Electronically signed by: Augustine Fernandes MD 12/10/2024 01:42 PM EST
== END 2024-12-10 12:17 | disposition home or self-care (01) ==
LOC: HO.HOSX 12:16
PROVIDERS: PCP Family Medicine; Visit Provider Physician Assistant
DX: M17.0 Bilateral primary osteoarthritis of knee (principal); S80.02XA Contusion of left knee, initial encounter
CPT/HCPCS: 73562

== ENCOUNTER 2024-12-10 12:16 | Outpatient (AMB) | payer OTHER, SELFPAY ==
--- NOTE | 2024-12-10 12:29 | A.OFFVIS_ITS ---
Vital Signs 12/10/24 12:37 Height 5 ft 5 in Weight 205 lb BMI 34.1 Intake Visit Reasons: OV- right knee OA, last inj 03/05/24 Intake Note: Tsering is a 43 year old female who presents today for a follow up of her right knee OA, last inj 03/05/24. Patient reports about 3 weeks ago while she was taking her dog outside she slipped and fell down 5 steps while. Her right k nee pain subsided after her fall. States she is now having left ankle and knee pain due to her injury. States not being able to apply full pressure to her knee. Her pain in her ankle is located at the medial aspect. Allergies No Known Allergies Allergy (Verified 12/10/24 12:37) HPI HPI OV- right knee OA, last inj 03/05/24: Details: Ms. Huynh is a 43 year old female who presents today for a follow up of her right knee OA, last inj 03/05/24. Patient reports about 3 weeks ago while she was taking her dog outside she slipped and fell down 5 steps while. Her right knee pain subsided after her fall. States she is now having left ankle and knee pain due to her injury. [facility] Medical History Herniated disc Surgical History History of loop electrical excision procedure (LEEP) History of surgical removal of ganglion cyst No pertinent past surgical history Family History Maternal Aunt Breast cancer Social History Housing: House Alcohol intake: never Patient Tobacco Use Status: Former Tobacco user e-Cigarette/Vaping Use: Never Used Second Hand Smoke Exposure: Yes service: No Current occupational status: student Current occupation: right handed/ Current occupational exposures/hazards: No Cognitive needs: No Hearing needs: No Vision needs: No Female Reproductive History Menstrual Age of Menarche: 16 Review of Systems Const All systems reviewed & are unremarkable except as noted in HPI and below Physical Exam Vital Signs: BMI result Body Mass Index 34.1 Const General: cooperative, healthy appearing and no acute distress Resp Effort & Inspection: normal respiratory effort and able to speak in complete sentences Cardio Rate: regular rate Peripheral pulses: Peripheral pulses 2+ throughout Skin Lesions: no lesions Rashes: no rashes Extrem Other: Left knee: Able to perform full range of motion with flexion-extension. Crepitus felt with range of motion. Slight tenderness to palpation over the anterior aspect of the patella. NVI. Assessment & Plan Assessment & Plan (1) Contusion of left knee: Code(s): S80.02XA - Contusion of left knee, initial encounter Category: Medical (2) Osteoarthritis of left knee: Code(s): M17.12 - Unilateral primary osteoarthritis, left knee Category: Medical Plan Lino Flores is a 43 year old female who presents today for a follow up of her right knee OA, last inj 03/05/24. Patient reports about 3 weeks ago while she was taking her dog outside she slipped and fell down 5 steps while. Her right knee pain subsided after her fall. States she is now having left ankle and knee pain due to her injury. While the office today x-rays were obtained of the left knee and are negative for any acute fracture or dislocation. Patient does have full range of motion of the left knee and therefore physical therapy was deferred at this time. We did discuss the role of cortisone injections however her pain is slowly resolving. Think the patient likely has a contusion of the left knee and I advised the patient this can take several months for resolution. Patient understands and accepts. X-rays of the left knee were obtained in the office today and reviewed by me, Riddhi Josue PA-C, and are negative for any acute fracture dislocation. Orders: Orders XR knee LT 3V Today M25.569 - Pain in unspecified knee Coding Level of Care Code Est Pt Level 3 (27521) Diagnoses Contusion of left knee S80.02XA Osteoarthritis of left knee M17.12
[2024-12-10 12:37] VITALS: BMI 34.1
== END 2024-12-10 13:09 | disposition home or self-care (01) ==
PROVIDERS: PCP Family Medicine; Visit Provider Physician Assistant
DX: S80.02XA Contusion of left knee, initial encounter (principal); M17.12 Unilateral primary osteoarthritis, left knee; W01.0XXA Fall on same level from slipping, tripping and stumbling without subsequent striking against object, initial encounter
CPT/HCPCS: 99213

== ENCOUNTER 2025-09-10 13:48 | Outpatient (AMB) | payer OTHER, SELFPAY ==
--- NOTE | 2025-09-10 13:58 | MHC.PC.OV ---
Vital Signs 09/10/25 14:07 Height 5 ft 5 in Weight 205 lb 6 oz BMI 34.2 BP 120/80 Blood Pressure Location Rt brachial Position Sitting Respiration 18 Pulse 91 Pulse Source Pulse Oximeter Temp 98.9 F Temp Source Oral Pulse Oximetry (%) 97 Oxygen Delivery Method Room Air Intake Visit Reasons: CPE do not reschedule Intake Note: patient is scheduled for cpe with pcp and would like to discuss fmla paperwork if possible. Bending Machine Set Up Operator Required: No Is last menstrual period known: Yes Last menstrual period: 08/20/25 Post menopausal: No Patient : No Allergies No Known Allergies Allergy (Verified 09/10/25 14:05) Medication List - Last Reconciled 09/10/25 by Willy David MD albuterol sulfate 90 mcg/actuation (ProAir HFA) 2 puffs PO Q4-6H PRN Tobacco use date assessed: 09/10/25 Dental Screening Dental Screen Date: 09/10/25 Did you have a dental visit in the last 12 months?: Yes Did you have a dental problem in the last 6 months where you did not have access to dental care?: No Was dental information given to patient?: Yes HPI CPE do not reschedule HPI Details 45 y/o female presents for a CPE with f/u labs and health maint. No recent CPE labs to review. Has been complaints of L sided back pain. Pt notes hx of herniated discs L4-L5. 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 Pain had been exacerbated when a patient had fallen about last month and she had felt she injured her back again helping her out. PHQ-9 8, YVETTE-7 6 today. [facility] Medical History Herniated disc Surgical History History of loop electrical excision procedure (LEEP) History of surgical removal of ganglion cyst No pertinent past surgical history Family History Maternal Aunt Breast cancer Social History Housing: House Alcohol intake: never Patient Tobacco Use Status: Former Tobacco user e-Cigarette/Vaping Use: Never Used Second Hand Smoke Exposure: Yes service: No Current occupational status: student Current occupation: right handed/ Current occupational exposures/hazards: No Cognitive needs: No Hearing needs: No Vision needs: No Female Reproductive History Menstrual Age of Menarche: 16 Date of last menstrual period: 08/20/25 Questionnaire PHQ-9 Over the last 2 weeks, how often have you been bothered by any of the following problems? 1. Little interest or pleasure in doing things: several days 2. Feeling down, depressed, or hopeless: several days 3. Trouble falling or staying asleep, or sleeping too much: several days 4. Feeling tired or having little energy: several days 5. Poor appetite or overeating: several days 6. Feeling bad about yourself - or that you are a failure or have let yourself or your family down: several days 7. Trouble concentrating on things, such as reading the newspaper or watching television: several days 8. Moving or speaking so slowly that other people could have noticed. Or the opposite - being so fidgety or restless that you have been moving around a lot more than usual: several days 9. Thoughts that you would be better off or of hurting yourself in some way: not at all Total score: 8 Depression Screening Interpretation: Positive Depression Screening Follow-up: Declines treatment Depression Screening Done: Yes 90719 - PHQ-9 Billing: Yes Source: Developed by Drs. Augustine Ramirez, Bertha Carmichael, Dayton Sweeney and colleagues, with an educational taylor from [employer]. Thrive Questionnaire Date Thrive assessed: 09/10/25 I am a: Patient What is your living situation today?: I have a steady place to live Within the past 12 months, did the food you bought not last and you didn't have the money to get more?: Never true Within the past 12 months, did you worry whether your food would run out before you got money to buy more?: Never true Do you have trouble paying for medicines?: No Do you have trouble getting transportation to medical appointments?: No Do you have trouble paying your heating and electricity bill?: No Do you have trouble taking care of your child, family member or friend?: No Do you have trouble with day-to-day activities such as bathing, preparing meals, shopping, managing finances, etc.?: No Are you currently unemployed and looking for a job?: No Are you interested in more education?: No Please select the resources that you would like help with: None Currently or been in a relationship where the following occur: No concerns reported THRIVE Score: 0 AUDIT C Alcohol Use Questionnaire (AUDIT-C) 1. How often do you have a drink containing alcohol?: Monthly or less 2. How many drinks containing alcohol do you have on a typical day when you are drinking?: 1 or 2 3. How often do you have six or more drinks on one occasion?: Never Total Score: 1 Score Reviewed/Action Taken: Yes YVETTE-7 AMB Questionnaire YVETTE-7 Date YVETTE - 7 assessed: 09/10/25 Feeling nervous, anxious, or on edge: 1 = Several days Not being able to stop or control worryin = Several days Worrying too much about different things: 1 = Several days Trouble relaxin = Several days Being so restless that it is hard to sit still: 1 = Several days Becoming easily annoyed or irritable: 1 = Several days Feeling afraid as if something awful might happen: 0 = Not at all Total YVETTE-7 score (0-4 normal; 5-9 mild; 10-14 moderate; 15-21 severe): 6 Source: Developed by Drs. Augustine Ramirez, Bertha Carmichael, Dayton Sweeney and colleagues, with an educational taylor from [employer]. YVETTE-7 Assessment Billing YVETTE-7 Assessment Tool: YVETTE-7 Assessment 85127 Review of Systems Const Denies chills, Denies fatigue, Denies fever(s), Denies headache(s) and Denies weakness Eyes Denies change in vision ENT Denies dizziness, Denies headache(s), Denies hearing loss, Denies nasal congestion, Denies sinus pain, Denies sinus pressure and Denies sore throat Card Denies chest pain, Denies lightheadedness, Denies dyspnea and Denies other (palpitations) Resp Denies cough, Denies dyspnea and Denies wheezing GI Denies abdominal pain, Denies melena, Denies hematochezia, Denies change in bowel habits, Denies dyspepsia and Denies nausea Denies hematuria and Denies dysuria Musc Denies abnormal gait, Denies myalgias, Denies arthralgias, Denies numbness and Denies tingling Skin/Breast Denies rash, Denies unusual bruising and Denies wounds Neuro Denies abnormal gait, Denies dizziness, Denies headache(s), Denies memory loss, Denies numbness, Denies Sensory deficit (Neuro), Denies tingling and Denies weakness Psych Denies anxiety, Denies depression and Denies memory loss Endo Denies cold intolerance, Denies fatigue, Denies heat intolerance, Denies polydipsia and Denies polyuria Deo/Lymph Denies easy bleeding and Denies easy bruising Aller/Immun Denies wheezing Physical exam (Primary Care) Vital Signs: Last Vital Signs Temp 98.9 F 09/10/25 14:07 Pulse 91 09/10/25 14:07 Resp 18 09/10/25 14:07 BP 120/80 09/10/25 14:07 Pulse Ox 97 09/10/25 14:07 Oxygen Delivery Method Room Air 09/10/25 14:07 BMI result Body Mass Index 34.2 Tobacco/Smoking Status: Tobacco use Status Tobacco use date assessed 09/10/25 09/10/25 14:11 Patient Tobacco Use Status Former Tobacco user 09/10/25 13:59 e-Cigarette/Vaping Use Never Used 09/10/25 13:59 PHQ-9: PHQ-9 Score PHQ-9: Total score 8 09/10/25 14:24 Depression Screening Interpretation: Positive Depression Screening Follow-up: Declines treatment Thrive Assessment: Date of Thrive Assessment Date Thrive assessed 09/10/25 09/10/25 14:11 Currently or been in a relationship where the following occur: No concerns reported Const General: no acute distress, well developed, alert and awake Nutritional Appearance: well nourished Orientation/consciousness: patient oriented x3 HENMT Head: Yes normocephalic and Yes atraumatic Ears: hearing grossly normal bilaterally and TM's normal bilaterally General nose exam: Normal external nose present and Normal nares present Mouth: Normal oral and palatal mucosa present and moist mucous membranes Teeth and gingiva: dentition normal Throat: Yes posterior oropharynx normal Eyes General: appearance normal, both eyes and all related structures Pupils: Equal, round and reactive pupils present and Pupil accommodation reflex normal EOM: EOMs intact bilaterally Neck Neck: Yes normal visual inspection, Yes no lymphadenopathy and Yes trachea midline Thyroid: Thyroid normal Carotids: no bruits Lymphatic: no lymphadenopathy noted Chest Chest palpation & inspection: normal inspection of the chest Resp Effort & Inspection: normal respiratory effort Auscultation: clear to auscultation bilaterally Cardio Rate: regular rate Rhythm: regular rhythm Heart sounds: S1 normal heart sound present, S2 normal heart sound present, no gallops, no murmurs and no rubs Bruits: no abdominal aortic bruits and no carotid bruits GI Palpation (GI): No Abdominal aortic bruit present, Soft to palpation, nontender, No hepatosplenomegaly present and No Rebound tenderness present Auscultation: normal bowel sounds General: Yes no CVA tenderness Back/Spine/Pelvis Back: no CVA tenderness Cervical Spine: cervical ROM normal and No Cervical spine tenderness Thoracic/Lumbar Spine: thoraco-lumbar ROM normal, No pain with thoraco-lumbar ROM, No thoracic spinal tenderness and No lumbar spinal tenderness Skin Lesions: no lesions Rashes: no rashes Trauma: no lacerations or abrasions Wounds: no wounds Nails: normal Neuro General: patient oriented x3 Cranial nerves: Yes Equal, round and reactive pupils present Cognition (Neuro): normal cognition Gait exam (Neuro): Normal gait present Motor exam (neuro): 5/5 motor strength present throughout Sensory Exam: No Sensory deficit (Neuro) Deep tendon reflexes (DTR's): Right patellar reflex intensity grade: 2+ and Left patellar reflex intensity grade: 2+ Extrem General: Yes normal to inspection and No edema Psych Appearance: grossly normal Affect: normal affect Attitude: cooperative Thought process: Normal thought process present Coding Level of Care Code Est Pt Level 3 (04750) Est Pt Prev Care 40-64y(92819) Diagnoses Adult general medical exam Z00.00 Low back pain M54.50 Lumbar radiculopathy M54.16 Depression with anxiety F41.8 Screening for cervical cancer Z12.4 Screening for breast cancer Z12.39 Additional Codes YVETTE-7 Assessment Billing - YVETTE-7 Assessment Tool: YVETTE-7 Assessment 64125 ([id number]) PHQ-9 - 46918 - PHQ-9 Billing: Yes ([id number]) Assessment & Plan Assessment & Plan (1) Adult general medical exam: Code(s): Z00.00 - Encounter for general adult medical examination without abnormal findings Category: Medical Plan: 45-year-old female presents for complete physical exam (2) Low back pain: Code(s): M54.50 - Low back pain, unspecified Category: Medical Plan: Acute on chronic lumbar radiculopathy on the left Patient notes her original injury was in 2009. Pain well boosting a patient. She injured discs L4 and L5. Was followed by Dr. Narayan. She declined surgery and was treated conservatively with medication and physical therapy as well as pain management. Patient notes that she had mostly improved what always had some mild back pain. 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 She was seen twice by nurse practitioner and [facility] employee health. They have kept her out of work since August 07 and she has undergone physical therapy x8 sessions. She notes that pain still gets between 60 and 80% of the severity it had reached when she initially heard it in July. Has not had any x-rays yet Try muscle relaxer but has stopped this and is just using ibuprofen 600 mg twice a day --- Acute on chronic low back pain at left lower back and radiating into left buttock and posterior leg to the knee She has undergone physical therapy She is using ibuprofen and I encouraged her to use 600 mg t.i.d. Ice/heat Will check x-ray Referring her to physiatry Will keep her out of work for another 4 weeks and re-evaluate in 3-4 weeks. [place] paperwork filled out today (3) Lumbar radiculopathy: Code(s): M54.16 - Radiculopathy, lumbar region Category: Medical Plan: As above (4) Depression with anxiety: Code(s): F41.8 - Other specified anxiety disorders Category: Medical Plan: Mild Will f/u at next OV (5) Screening for cervical cancer: Code(s): Z12.4 - Encounter for screening for malignant neoplasm of cervix Category: Medical Plan: Referred to [facility] at patient request (6) Screening for breast cancer: Code(s): Z12.39 - Encounter for other screening for malignant neoplasm of breast Category: Medical Plan She will return in 3-4 weeks to follow-up lumbar radiculopathy on the left. Acute on chronic. Filled out [facility] paperwork today. Will re-evaluate and consider return to work verses extension verses intermittent leave Orders: Orders Comprehensive [place]. Panel Fast 09/11/25 Z00.00 - Encounter for general adult medical examination without abnormal findings Lipid Panel 09/11/25 Z00.00 - Encounter for general adult medical examination without abnormal findings Microalbumin, Random (w Creat) 09/11/25 I10 - Essential (primary) hypertension MM tomosynthesis screening BI 09/10/25 Z12.31 - Encounter for screening mammogram for malignant neoplasm of breast UA CC w/rflx Micro + Cult 09/11/25 Z00.00 - Encounter for general adult medical examination without abnormal findings TSH reflex Free T4 09/11/25 Z00.00 - Encounter for general adult medical examination without abnormal findings XR lumbar spine 2-3V 09/11/25 M54.50 - Low back pain, unspecified Referrals Physiatry Referral M54.50 - Low back pain, unspecified [employer] O[employer] Referral Z12.4 - Encounter for screening for malignant neoplasm of cervix
[2025-09-10 14:07] VITALS: BP 120/80; PULSE 91; RESP 18; TEMP 37.2; O2SAT 97; BMI 34.2
== END 2025-09-10 15:13 | disposition home or self-care (01) ==
LOC: HO.HMCFM 13:49
PROVIDERS: PCP Family Medicine; Visit Provider Family Medicine
DX: Z00.00 Encounter for general adult medical examination without abnormal findings (principal); M54.50 Low back pain, unspecified; M54.16 Radiculopathy, lumbar region; F41.8 Other specified anxiety disorders; Z12.39 Encounter for other screening for malignant neoplasm of breast

== ENCOUNTER → 2025-09-10 13:48 | Outpatient (BNVA) | payer OTHER, SELFPAY | PROVIDERS: PCP Family Medicine; Visit Provider Family Medicine | DX: Z00.00 Encounter for general adult medical examination without abnormal findings (principal); M54.16 Radiculopathy, lumbar region; F41.8 Other specified anxiety disorders | CPT/HCPCS: 96127 ==

== ENCOUNTER 2025-09-11 10:10 | Outpatient (REF) | payer OTHER, SELFPAY ==
--- NOTE | ~2025-09-11 | XR_ITS ---
EXAMINATION: XR LUMBAR SPINE 2-3 VIEWS HISTORY: M54.50 - Low back pain, unspecified COMPARISON: There are no prior studies for comparison. FINDINGS: AP, lateral, and coned down views of the lumbar spine are submitted. Osseous mineralization is normal. Five nonrib-bearing lumbar vertebral bodies are identified, maintaining normal height and alignment without evidence of fracture or spondylolisthesis. There is mild to moderate degenerative disc disease at the L5-S1 level with disc space narrowing and osteophyte formation. Milder changes are noted at the L4-5 level. The posterior elements are intact. The visualized paraspinal soft tissues are unremarkable. XR/XR lumbar spine 2-3V IMPRESSION: Degenerative changes of the lumbar spine as described. Electronically signed by: Augustine Fernandes MD 09/11/2025 11:06 AM EDT
[2025-09-11 11:03] LABS: Appearance Urine Clear; Glucose Urine UA Negative (Negative); PH 5.5 (5.0-9.0); Specific Gravity - Urine 1.020 (1.005-1.025); UMIC TRIGGER UACC YES
[2025-09-11 11:29] LABS: Microalbum/Creatinine Ratio Ur 4.5 ug/mg cr (<30)
[2025-09-11 11:30] LABS: Alanine Aminotransferase 16 U/L (0-31); Albumin Level 4.8 g/dL (3.5-5.0); Alkaline Phosphatase 62 U/L (39-117); Anion Gap 12 (12-20); Aspartate Amino Transferase 22 U/L (5-31); Blood Urea Nitrogen 13 mg/dL (9-16); Calcium 9.2 mg/dL (8.4-10.2); Carbon Dioxide 27 mmol/L (22-29); Chloride 108 mmol/L (96-108); Cholesterol 189 mg/dL (<200); Estimated Glomerular Filt Rate > 60; HDL Cholesterol 69 mg/dL (>40); Potassium 4.1 mmol/L (3.3-5.1); Sodium 143 mmol/L (135-145); Total Protein 6.9 g/dL (6.5-8.0); Triglycerides 54 mg/dL (<150)
== END 2025-09-11 10:11 | disposition home or self-care (01) ==
LOC: HO.XRAY 10:10
PROVIDERS: PCP Family Medicine; Visit Provider Family Medicine
DX: Z00.00 Encounter for general adult medical examination without abnormal findings (principal); M54.50 Low back pain, unspecified; I10 Essential (primary) hypertension
CPT/HCPCS: 36415; 72100; 80053; 80061; 81001; 81003; 82043; 82570; 84443

== ENCOUNTER → 2025-09-11 10:31 | Outpatient (BNV) | payer OTHER, SELFPAY | PROVIDERS: PCP Family Medicine; Visit Provider Radiology Diagnostic Radiology | DX: M54.50 Low back pain, unspecified (principal) | CPT/HCPCS: 72100 ==

== ENCOUNTER 2025-10-07 14:08 | Outpatient (REF) | payer OTHER, SELFPAY ==
--- NOTE | ~2025-10-07 | MM_ITS ---
EXAMINATION: MM SCREENING DIGITAL BREAST TOMOSYNTHESIS, BILATERAL CLINICAL INFORMATION: Screening. Asymptomatic. COMPARISON: Mammography: Baseline mammogram. TECHNIQUE: Digital breast mammography with tomosynthesis is performed in both the craniocaudal and mediolateral oblique views along with computer-aided detection (CAD). FINDINGS: There are scattered areas of fibroglandular density. There are no significant masses, abnormal calcifications, or other abnormalities. MM/MM tomosynthesis screening BI IMPRESSION: No mammographic evidence of malignancy. ASSESSMENT: BI-RADS Category 1: Negative RECOMMENDATION: Routine annual mammography screening. 1 year F/U This examination should not preclude the clinical evaluation of a suspicious palpable abnormality. This patient's information was entered into a reminder system with a target due date for their next mammogram. Electronically signed by: Tatiana Hollins DO 10/07/2025 06:32 PM AMARIS NARANJO
== END 2025-10-07 14:09 | disposition home or self-care (01) ==
LOC: HO.MAMMO 14:08
PROVIDERS: PCP Family Medicine; Visit Provider Family Medicine
DX: Z12.31 Encounter for screening mammogram for malignant neoplasm of breast (principal)
CPT/HCPCS: 77063; 77067

== ENCOUNTER → 2025-10-07 14:45 | Outpatient (BNV) | payer OTHER, SELFPAY | PROVIDERS: PCP Family Medicine; Visit Provider Internal Medicine | DX: Z12.31 Encounter for screening mammogram for malignant neoplasm of breast (principal) | CPT/HCPCS: 77063; 77067 ==